=== PATIENT | male | born 1990 | race Two or more races ===

== ENCOUNTER 2021-05-17 21:50 | Emergency (ER) | payer OTHER ==
[~2021-05-17] VITALS: Ht 175.3 cm; Wt 68.0 kg
[2021-05-17] MEDS ORDERED: DICLOFENAC SODI75 MG PO (23:19)
[2021-05-17] MEDS ORDERED: CIPRO500 MG PO (23:19)
== END 2021-05-18 | disposition home or self-care (01) ==
LOC: ER 21:50
DX: S61.439A Puncture wound without foreign body of unspecified hand, initial encounter (principal); W29.8XXA Contact with other powered hand tools and household machinery, initial encounter; Y93.9 Activity, unspecified; Y92.9 Unspecified place or not applicable; Y99.9 Unspecified external cause status